=== PATIENT | male | born 1960 | race Two or more races ===

== ENCOUNTER 2025-02-19 17:44 | Inpatient (IN) | payer SELFPAY ==
[~2025-02-19] VITALS: Ht 177.8 cm; Wt 101.0 kg
[2025-02-19] MEDS: AZITHROMYCIN 500MG/ 250ML 250 ML IV ONE (04:31)
[2025-02-19] MEDS: ALBUTEROL SULF 2.5 MG/0.5ML(0.5%) NEB SOLN HHN ONE (18:18)
[2025-02-19] MEDS: IPRATROPIUM BROM 0.5 MG/2.5ML INH SOL HHN ONE (18:18)
--- NOTE | 2025-02-19 18:20 | ED.PDOC ---
SOB-HPI HPI Comments 64y M who presents to the ED for chief complaint of shortness of breath. Pt states he has been having shortness of breath, cough, congestion, and head and sinus pressure intermittently for the past 9 months. Pt states he has noticed exacerbation of his symptoms and was seen by PCP. Pt states he had work up and states it was negative 1x week prior. Pt states he went to PCP today due to exacerbation of his symptoms and was noted to be short of breath with 02 sat of 92 % on room air and was referred to the ED for further evaluation. Pt in the ED, has noted 02 sat of 94% on room air and was placed on supplemental 02. Pt otherwise denies chest pain or any associated symptoms. 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 Pt otherwise denies any other symptoms a this time. Chief Complaint: Shortness of Breath Time Seen by MD: 18:05 Reviewed notes: Nurses Notes, Medications, Allergies Information Source: Patient Mode of Arrival: Ambulatory Brought in by: self Severity: Moderate Timing: Hours Duration: Since onset Context: At Rest PE Risk Factors: None History of: None Prehospital treatment: Oxygen Modifying Factors: Nothing Associated Signs and Symptoms: Wheeze, Cough If cough with SOB: Non-Productive Past Medical History PAST MEDICAL HISTORY: Denies Surgical History: Denies all surgeries Social History Smoker: Non-Smoker Alcohol: Occasionally Drugs: Denies Drug Use Lives In: Home Constitutional: denies: chills, diaphoresis, fatigue, fever, malaise, sweats, weakness, others EENTM: denies: blurred vision, double vision, ear bleeding, ear discharge, ear drainage, ear pain, ear ringing, eye pain, eye redness, hearing loss, mouth pain, mouth swelling, nasal discharge, nose bleeding, nose congestion, nose pain, photophobia, tearing, throat pain, throat swelling, voice changes, others Respiratory: reports: cough, shortness of breath; denies: hemoptysis, orthopnea, SOB at rest, SOB with excertion, stridor, wheezing, others Cardiovascular: denies: chest pain, dizzy spells, diaphoresis, Dyspnea on exertion, edema, irregular heart beat, left arm pain, lightheadedness, palpitations, PND, syncope, others Gastrointestinal: denies: abdomen distended, abdominal pain, blood streaked bowels, constipated, diarrhea, dysphagia, difficulty swallowing, hematemesis, melena, nausea, poor appetite, poor fluid intake, rectal bleeding, rectal pain, vomiting, others Genitourinary: denies: burning, dysuria, flank pain, frequency, hematuria, incontinence, penile discharge, penile sore, pain, testicle pain, testicle swelling, urgency, others Neurological: denies: dizziness, fainting, headache, left sided numbness, left sided weakness, numbness, paresthesia, pre-existing deficit, right sided numbness, right sided weakness, seizure, speech problems, tingling, tremors, weakness, others Musculoskeletal: denies: back pain, gout, joint pain, joint swelling, muscle pain, muscle stiffness, neck pain, others Integumetry: denies: bruises, change in color, change in hair/nails, dryness, laceration, lesions, lumps, rash, wounds, others Allergic/Immunocompromised: denies: Difficulty Healing, Frequent Infections, Hives, Itching, others Hematologic/Lymphatic: denies: anemia, blood clots, easy bleeding, easy bruising, swollen glands, others Endocrine: denies: excessive hunger, excessive sweating, excessive thirst, excessive urination, flushing, intolerance to cold, intolerance to heat, unexplained weight gain, unexplained weight loss, others Psychiatric: denies: anxiety, bipolar disorder, depression, hopeless, panic disorder, schizophrenia, sleepless, suicidal, others All Other Systems: Reviewed and Negative Physical Exam General Appearance: Moderate Distress HEENT: Normal ENT Inspection, Pharynx Normal, TMs Normal Neck: Full Range of Motion, Non-Tender, Normal, Normal Inspection Respiratory: Chest Non-Tender, Decreased Breath Sounds, No Accessory Muscle Use, Respiratory Distress, Wheezing Cardiovascular: No Edema, No JVD, No Murmur, No Gallop, Normal Peripheral Pulses, Regular Rate/Rhythm Breast Exam: Deferred Gastrointestinal: No Organomegaly, Non Tender, No Pulsatile Mass, Normal Bowel Sounds, Soft Genitalia: Deferred Pelvic: Deferred Rectal: Deferred Extremities: No calf tenderness, Normal capillary refill, Normal inspection, Normal range of motion, Non-tender, No pedal edema Musculoskeletal : Apperance: Normal Neurologic: Alert, stonehand II-XII nml as Tested, No Motor Deficits, Normal Affect, Normal Mood, No Sensory Deficits Cerebellar Function: Normal Reflexes: Normal Skin: Dry, Normal Color, Warm Lymphatic: No Adenopathy EKG EKG : Pulse Rate (adult): 67 [place]: Normal Cardiac Rhythm: NSR Block: None Hypertrophy: None ST: Normal Comments low voltage Was a procedure done? Was a procedure done?: No Differential Dx Differential Diagnosis: Asthma, Bronchitis, COPD, Pneumonia, Respiratory Distress, Pharyngitis, URI X-Ray, Labs, Meds, VS Vital Signs Date Time Temp Pulse Resp B/P (MAP) Pulse Ox O2 Delivery O2 Flow Rate FiO2 02/19/25 19:00 97.6 102 20 150/82 (104) 96 97.6 02/19/25 19:00 102 20 96 Nasal Cannula* 2 28 02/19/25 18:27 18 98 Nasal Cannula* 2 28 02/19/25 18:20 67 02/19/25 17:54 67 02/19/25 17:45 97.4 77 18 129/87 94 97.4 Lab Test 02/19/25 18:11 Range/Units White Blood Count 7.3 4.4-10.8 10^3/uL Red Blood Count 4.97 4.5-5.90 10^6/uL Hemoglobin 16.8 13.5-17.5 g/dL Hematocrit 49.1 41.0-53.0 % Mean Corpuscular Volume 98.9 80.0-100.0 fL Mean Corpuscular Hemoglobin 33.8 H 28.0-32.0 pg Mean Corpuscular Hemoglobin Concent 34.2 32.0-36.0 g/dL Red Cell Distribution Width 12.1 11.8-14.3 % Platelet Count 352 140-450 10^3/uL Mean Platelet Volume 6.8 L 6.9-10.8 fL Neutrophils (%) (Auto) 48.5 37.0-80.0 % Lymphocytes (%) (Auto) 28.8 10.0-50.0 % Monocytes (%) (Auto) 10.3 0.0-12.0 % Eosinophils (%) (Auto) 12.1 H 0.0-7.0 % Basophils (%) (Auto) 0.3 0.0-2.0 % Neutrophils # (Auto) 3.5 1.6-8.6 10 ^3/uL Lymphocytes # (Auto) 2.1 0.4-5.4 10 ^3/uL Monocytes # (Auto) 0.7 0-1.3 10 ^3/uL Eosinophils # (Auto) 0.9 H 0-0.8 10 ^3/uL Basophils # (Auto) 0 0-0.2 10 ^3/uL Nucleated Red Blood Cells 0.1 % Sodium Level 138 136-145 mmol/L Potassium Level 4.4 3.5-5.1 mmol/L Chloride Level 104 98-107 mmol/L Carbon Dioxide Level 25 20-31 mmol/L Anion Gap 9 5-15 Blood Urea Nitrogen 7 L 9-23 mg/dL Creatinine 0.84 0.700-1.30 mg/dL Glomerular Filtration Rate Calc 99 >90 mL/min BUN/Creatinine Ratio 8.3 L 10.0-20.0 Serum Glucose 93 74-106 mg/dL Calcium Level 10.4 8.7-10.4 mg/dL B-Type Natriuretic Peptide 23.28 0-100 pg/mL Current Medications Medications (Trade) Dose Ordered Sig/Darrell Route Start Time Stop Time Status Last Admin Methylprednisolone Sodium Succinate (Solu Medrol) 125 mg ONCE ONCE IV 02/19/25 18:15 02/19/25 18:16 DC 02/19/25 19:22 Ipratropium [place] (Atrovent Medneb) 1 mg ONCE ONCE [facility] 02/19/25 18:15 02/19/25 18:16 DC 02/19/25 18:18 Albuterol (Ventolin Medneb) 20 mg ONCE ONCE [facility] 02/19/25 18:15 02/19/25 18:16 DC 02/19/25 18:18 EXAM: XY CHEST TWO VIEWS ROUTINE Findings/Impression: Frontal and lateral chest radiographs demonstrate no acute osseous or superficial soft tissue abnormalities. The trachea is midline. The cardiac silhouette and mediastinum are within normal limits. No pneumothorax, pleural effusions, or consolidations. IV Hep-Lock was established The patient was given a continuous breathing treatment of albuterol and Atrovent The patient was given Solu-Medrol 125 mg IV push The BNP is 23.28 The chemistry panel is within normal limits The CBC is within normal limits At this time, the patient is being admitted to the hospitalist the patient remains at approximately 96% on 2 L nasal cannula The patient is being admitted Images Reviewed?: Images reviewed and evaluated by me Time of 1ST Reevaluation: 18:35 Reevaluation 1ST: Unchanged Time of 2ND Reevaluation: 20:16 Reevaluation 2ND: Unchanged Patient Education/Counseling: Diagnosis, Treatment, Prognosis Family Education/Counseling: No Family Present SEPSIS Sepsis Screen Date sepsis recognized/suspect: Feb 19, 2025 Time Sepsis recognized/suspect: 1746 Recent Procedure: No On Antibiotic Therapy: No Respiratory Rate >20: No Heart Rate >90: No Temp<36 C (96.8 F) or >38.3 C: No SBP <90 or MAP <65 mmHG: No New Acute Mental Status Change: No Is the patient on CPAP, BIPAP,: No Physician Orders Electrocardigram (02/19/25 18:00) Med Neb Initial Treatment (02/19/25 18:01) Heplock Iv (02/19/25 18:01) Pulse Oximetry (02/19/25 18:01) Planer Stone (02/19/25 18:01) Blood Pressure (02/19/25 18:01) Chest Two Views Routine (02/19/25 18:01) Vital Signs Date Time Temp Pulse Resp B/P (MAP) Pulse Ox O2 Delivery O2 Flow Rate FiO2 02/19/25 19:00 97.6 102 20 150/82 (104) 96 97.6 02/19/25 19:00 102 20 96 Nasal Cannula* 2 28 02/19/25 18:27 18 98 Nasal Cannula* 2 28 02/19/25 18:20 67 02/19/25 17:54 67 02/19/25 17:45 97.4 77 18 129/87 94 97.4 Laboratory Tests Test 02/19/25 18:11 White Blood Count 7.3 10^3/uL (4.4-10.8) Medications Medications Dose Ordered Sig/Darrell Route Start Time Stop Time Status Last Admin Dose Admin Albuterol 20 mg ONCE ONCE [facility] 02/19/25 18:15 02/19/25 18:16 DC 02/19/25 18:18 Ipratropium [place] 1 mg ONCE ONCE [facility] 02/19/25 18:15 02/19/25 18:16 DC 02/19/25 18:18 Methylprednisolone Sodium Succinate 125 mg ONCE ONCE IV 02/19/25 18:15 02/19/25 18:16 DC 02/19/25 19:22 Departure 1 Departure Time of Disposition: 20:16 Impression: Primary Impression: Acute respiratory failure Qualified Codes: J96.01 - Acute respiratory failure with hypoxia Additional Impression: COPD (chronic obstructive pulmonary disease) Qualified Codes: J44.9 - Chronic obstructive pulmonary disease, unspecified Disposition: 09 ADMITTED INPATIENT Admit to: Tele Condition: Fair Critical Care Note Critical Care Time?: No Stability Stability form required: Yes Unstable for transfer: Telemetry monitoring (Telemetry monitoring required), ED Physician Assesment (Clinical assesment) Heart Score Heart Score: Heart Score Response (Comments) Value History Slightly Suspicious 0 EKG Normal 0 Age 45-64 1 Risk Factors No known risk factors 0 Troponin Normal limit 0 Total 1 I personally scribed for MOSES CHI MD ([email or web address]) on 02/19/25 at 18:20. Electronically submitted by Emilia Norton ([email or web address] I personally scribed for MOSES CHI MD ([email or web address]) on 02/19/25 at 19:28. Electronically submitted by Emilia Norton ([facility] [email or web address]). MOSES CHI MD Feb 19, 2025 18:20
[2025-02-19 18:22] LABS: Hematocrit 49.1 % (41.0-53.0); Hemoglobin 16.8 g/dL (13.5-17.5); Mean Corpuscular Hemoglobin 33.8 pg (28.0-32.0); Mean Corpuscular Volume 98.9 fL (80.0-100.0); Nucleated Red Blood Cells % 0.1 %
[2025-02-19 18:36] LABS: Chloride 104 mmol/L (98-107); Potassium 4.4 mmol/L (3.5-5.1); Sodium 138 mmol/L (136-145)
[2025-02-19 18:37] LABS: Anion Gap 9 (5-15); Calcium 10.4 mg/dL (8.7-10.4); Carbon Dioxide 25 mmol/L (20-31)
[2025-02-19 18:42] LABS: BUN/Creatinine Ratio 8.3 (10.0-20.0); Glucose 93 mg/dL (74-106)
[2025-02-19 18:47] LABS: Blood Urea Nitrogen 7 mg/dL (9-23)
[2025-02-19 19:00] VITALS: PULSE 102; RESP 20; O2SAT 96
--- NOTE | 2025-02-19 19:19 | DVH ---
EXAM: XY CHEST TWO VIEWS ROUTINE TECHNIQUE: Two radiographic views of the chest CLINICAL HISTORY: cough COMPARISON: None Findings/Impression: Frontal and lateral chest radiographs demonstrate no acute osseous or superficial soft tissue abnorma lities. The trachea is midline. The cardiac silhouette and mediastinum are within normal limits. No pneumothorax, pleural effusions, or consolidations.
[2025-02-19] MEDS: methylPREDNISolone SOD SUCC 125 MG/2 ML VL IV ONE (19:22)
--- NOTE | 2025-02-19 22:14 | DVHHPRES ---
History of Present Illness Resident Creating Document: MEG SPARROW RESIDENT History of Present Illness Logan Parikh is a 64 yo male, with no significant past medical history. The patient presented to the ED for chief complaint of of shortness of breath. The patient states that he has been having shortness of breath, cough, malaise, nasal congestion with frontal and maxillary sinus pressure intermittently for the past 9 months, he visited the urgent care and was prescribed with "inhalers" and mucolytics that provided partial and temporary response. Today, the patient noticed exacerbation of his symptoms, his visited the local urgent care were he was found with low O2 saturation: 92% at room air and was advised to visit the ED. In the ED patient was found O2 sat 94% on room air and O2 2L by nasal canula was started. The patient denies fever, chills, nausea, vomit, sick contacts or recent travels. Cardiovascular: Other (None) Pulmonary: Other (sinusitis past 2 years, COPD ? ) GI: Other (None) Psych: Other (None) Past Surgical History: None Family History: Cancer (Lung cancer on father ) ALCOHOL: occassional Drugs: Marijuana (In teen years, quit more than 20 years ago) Lives: with Family Review of Systems Constitutional: Yes: Malaise; No: Fever, Chills, Sweats, Weakness, Other Eyes: No: Pain, Vision change, Conjunctivae inflammation, Eyelid inflammation, Other, Redness ENT: No: Ear pain, Ear discharge, Nose pain, Nose discharge, Nose congestion, Mouth pain, Mouth swelling, Throat pain, Throat swelling, Other Respiratory: Cough, Dry, Shortness of breath, SOB with excertion, Wheezing, Sputum, Wheezing; No: Hemoptysis, Pleuritic Pain, Other Cardiovascular: No: Chest Pain, Palpitations, Orthopnea, Paroxysmal Noc. Dyspnea, Edema, Lt Headedness, Other Gastrointestinal: No: Nausea, Vomiting, Abdominal Pain, Diarrhea, Constipation, Melena, Hematochezia, Other Genitourinary: No Dysuria, No Frequency, No Incontinence, No Hematuria, No Retention, No Other Musculoskeletal: No: other, neck pain, shoulder pain, arm pain, back pain, hand pain, leg pain, foot pain Skin: No: Rash, Lesions, Jaundice, Bruising, Other Neurological: No: Weakness, Numbness, Incoordination, Change in speech, Confusion, Seizures, Other Allergies: Coded Allergies: NO KNOWN ALLERGIES (Unverified , 02/19/25) Medications Current Medications Medications Dose Ordered Sig/Darrell Route Start Time Stop Time Status Last Admin Dose Admin Albuterol 5 mg Q4HP NEB 02/19/25 22:00 UNV Ipratropium [place] 0.5 mg Q4HP NEB 02/19/25 22:00 UNV Exam Vital Signs Vital Signs Date Time Temp Pulse Resp B/P (MAP) Pulse Ox O2 Delivery O2 Flow Rate FiO2 02/19/25 19:00 97.6 102 20 150/82 (104) 96 97.6 02/19/25 19:00 Nasal Cannula* 2 28 General Appearance: Alert, Oriented X3, Cooperative, mild distress HEENT: Atraumatic, PERRLA, Other (Nasal congestion, nasal and troat mucosa with erythema, no exudates, Nose with mucus are thick and green, tendernes over maxillar sinus and temporal sinus. ) Respiratory: Other (Tachypneic, Sat 93% on O2 2L, reduced long expansion, whezzing in median and lower lobes billateraly. ) Cardiovascular: Regular rate, Normal S1, Normal S2, No murmurs Abdominal: Normal bowel sounds, Soft, No tenderness, No hepatospenomegaly, No masses Extremities: No clubbing, No cyanosis, No edema, Normal pulses, No tenderness/swelling Skin: No rashes, No breakdown, No significant lesion Neuro: Normal gait, Normal speech, Strength at 5/5 X4 ext, Normal tone, Sensation intact, Cranial nerves 3-12 NL Psych/Mental Status: Mental status NL, Mood NL Labs/Xrays Labs Test 02/19/25 18:11 Range/Units White Blood Count 7.3 4.4-10.8 10^3/uL Red Blood Count 4.97 4.5-5.90 10^6/uL Hemoglobin 16.8 13.5-17.5 g/dL Hematocrit 49.1 41.0-53.0 % Mean Corpuscular Volume 98.9 80.0-100.0 fL Mean Corpuscular Hemoglobin 33.8 H 28.0-32.0 pg Mean Corpuscular Hemoglobin Concent 34.2 32.0-36.0 g/dL Red Cell Distribution Width 12.1 11.8-14.3 % Platelet Count 352 140-450 10^3/uL Mean Platelet Volume 6.8 L 6.9-10.8 fL Neutrophils (%) (Auto) 48.5 37.0-80.0 % Lymphocytes (%) (Auto) 28.8 10.0-50.0 % Monocytes (%) (Auto) 10.3 0.0-12.0 % Eosinophils (%) (Auto) 12.1 H 0.0-7.0 % Basophils (%) (Auto) 0.3 0.0-2.0 % Neutrophils # (Auto) 3.5 1.6-8.6 10 ^3/uL Lymphocytes # (Auto) 2.1 0.4-5.4 10 ^3/uL Monocytes # (Auto) 0.7 0-1.3 10 ^3/uL Eosinophils # (Auto) 0.9 H 0-0.8 10 ^3/uL Basophils # (Auto) 0 0-0.2 10 ^3/uL Nucleated Red Blood Cells 0.1 % Sodium Level 138 136-145 mmol/L Potassium Level 4.4 3.5-5.1 mmol/L Chloride Level 104 98-107 mmol/L Carbon Dioxide Level 25 20-31 mmol/L Anion Gap 9 5-15 Blood Urea Nitrogen 7 L 9-23 mg/dL Creatinine 0.84 0.700-1.30 mg/dL Glomerular Filtration Rate Calc 99 >90 mL/min BUN/Creatinine Ratio 8.3 L 10.0-20.0 Serum Glucose 93 74-106 mg/dL Calcium Level 10.4 8.7-10.4 mg/dL B-Type Natriuretic Peptide 23.28 0-100 pg/mL SEPSIS Sepsis Screen Date sepsis recognized/suspect: Feb 19, 2025 Time Sepsis recognized/suspect: 1746 Recent Procedure: No On Antibiotic Therapy: Yes Respiratory Rate >20: Yes Heart Rate >90: Yes Temp<36 C (96.8 F) or >38.3 C: No SBP <90 or MAP <65 mmHG: No New Acute Mental Status Change: No Is the patient on CPAP, BIPAP,: No Physician Orders Electrocardigram (02/19/25 18:00) Med Neb Initial Treatment (02/19/25 18:01) Heplock Iv (02/19/25 18:01) Pulse Oximetry (02/19/25 18:01) Histology Assistant (02/19/25 18:01) Blood Pressure (02/19/25 18:01) Chest Two Views Routine (02/19/25 18:01) Admit (02/19/25:) Code Status (02/19/25:) Vital Signs .PER UNIT PROTOCOL (02/19/25:29) Review Orders With Adm.Md (02/19/25:) Bedside Commode (02/19/25:) Regular Diet (02/20/25 Breakfast) Notify Md Of Changes From Base (02/19/25:) Advance Directive (02/19/25:) Blood Culture (02/19/25:) Patient Condition (02/19/25:) Allergies (02/19/25:) Drug Screen (02/19/25:) Oxygen By Nasal Cannula (02/19/25:) Notify Md Of Changes From Base (02/19/25 21:29) Albuterol Medneb (Ventolin Medneb) (02/19/25 22:00) Ipratropium Medneb (Atrovent Medneb) (02/19/25 22:00) Pantoprazole Tablet (Protonix Tablet) (02/19/25 21:30) Vital Signs Date Time Temp Pulse Resp B/P (MAP) Pulse Ox O2 Delivery O2 Flow Rate FiO2 02/19/25 19:00 97.6 102 20 150/82 (104) 96 97.6 02/19/25 19:00 102 20 96 Nasal Cannula* 2 28 02/19/25 18:27 18 98 Nasal Cannula* 2 28 02/19/25 18:20 67 02/19/25 17:54 67 02/19/25 17:45 97.4 77 18 129/87 94 97.4 Laboratory Tests Test 02/19/25 18:11 White Blood Count 7.3 10^3/uL (4.4-10.8) Medications Medications Dose Ordered Sig/Darrell Route Start Time Stop Time Status Last Admin Dose Admin Albuterol 20 mg ONCE ONCE N 02/19/25 18:15 02/19/25 18:16 DC 02/19/25 18:18 20 MG Ipratropium [place] 1 mg ONCE ONCE N 02/19/25 18:15 02/19/25 18:16 DC 02/19/25 18:18 1 MG Methylprednisolone Sodium Succinate 125 mg ONCE ONCE IV 02/19/25 18:15 02/19/25 18:16 DC 02/19/25 19:22 125 MG Assessment/Plan Assessment/Plan #Acute respiratory failure likely due to pneumonia gram +/- #Acute on Chronic Sinusitis O2 2L nasal cannula Azitromicyn IV Ceftriaxone IV Albuterol Neb Ipatropium Neb Mucolytics Sinus X-ray Blood culture Sputum culture #Obesity Style life modifications Regular diet DVT prophylaxis- Patient deambulating PUD prophylaxis Protonic Goals of care discussed with the patient > 35 min. Discussed plan of care with Dr. Gonzalez Code status: Full code PCP: patient can recall the name. Plan discussed with: Patient and , patients agrees with the plan. Plan discussed with: Patient, Spouse My Orders Orders - MEG SPARROW RESIDENT Procedure Category Date Status Time Admit ADMIT 02/19/25 Transmitted 21:29 Code Status CODE 02/19/25 Transmitted 21:29 Vital Signs [facility] 02/19/25 In Process 21:29 Review Orders With [facility] 02/19/25 In Process Adm.Md 21:29 Bedside Commode [facility] 02/19/25 In Process 21:29 Regular Diet DIET 02/20/25 Transmitted Breakfast Notify Md Of Changes [facility] 02/19/25 In Process From Base 21:29 Advance Directive [facility] 02/19/25 In Process 21:29 Blood Culture JOSE 02/19/25 Logged 21:29 Patient Condition ORDERS 02/19/25 Transmitted 21:29 Allergies [facility] 02/19/25 In Process 21:29 Drug Screen LAB 02/19/25 Logged 21:29 Oxygen By Nasal RT 02/19/25 Transmitted Cannula 21:29 Notify Of Changes [facility] 02/19/25 In Process From Base 21:29 Albuterol Medneb PHA 02/19/25 Logged (Ventolin Medneb) 22:00 Ipratropium Medneb PHA 02/19/25 Logged (Atrovent Medneb) 22:00 Pantoprazole Tablet PHA 02/19/25 Logged (Protonix Tablet) 21:30 Common Visit Codes: [id number] INP/OBS CARE (HIGH) Secondary Visit Codes: [id number] CARE PLAN 30 MINUTES MEG SPARROW RESIDENT Feb 19, 2025 22:14
[2025-02-19 22:24] VITALS: PULSE 81; RESP 18; O2SAT 98
[2025-02-19] MEDS: ALBUTEROL SULF 2.5 MG/0.5ML(0.5%) NEB SOLN NEB SCH (22:24)
[2025-02-19] MEDS: ACETYLCYSTEINE 10 %(100MG/ML) SOL 4ML NEB ONE (22:24)
[2025-02-19] MEDS: IPRATROPIUM BROM 0.5 MG/2.5ML INH SOL NEB SCH (22:24)
[2025-02-19] MEDS: IPRATROPIUM BROM 0.5 MG/2.5ML INH SOL ONE (22:26)
[2025-02-19] MEDS: ALBUTEROL SULF 2.5 MG/0.5ML(0.5%) NEB SOLN ONE (22:27)
[2025-02-19 22:32] VITALS: PULSE 79; RESP 18; O2SAT 100
[2025-02-19 22:35] VITALS: BP 129/76; PULSE 75; RESP 16; TEMP 97.5; O2SAT 95
[2025-02-20] VITALS (18 sets, daily range): BP systolic 105–169; BP diastolic 70–88; PULSE 72–125; RESP 11–19; TEMP 97–98.2; O2SAT 94–99
[2025-02-20] MEDS: PANTOPRAZOLE 40 MG TAB PO ONE (00:53)
[2025-02-20] MEDS: cefTRIAXone 1GM/50ML D5W 50 ML IV ONE (00:58)
--- NOTE | 2025-02-20 02:55 | DVH ---
Procedure: XY X PARANASAL SINUSES 3+ VIEW 02/19/2025 11:21 PM TECHNIQUE: XY X PARANASAL SINUSES 3+ VIEW Indication: Acute face pain possible sinusitis Comparison: None FINDINGS: Bones: No acute fracture or dislocation. Joint spaces are maintained. Soft tissues: Unremarkable. No radiopaque foreign body. No significant air-fluid levels. IMPRESSION: 1. No acute osseous abnormality.
[2025-02-20 06:55] LABS: Base Excess 0.5 mmol/L (-2.0-3.0)
[2025-02-20 08:49] LABS: Hematocrit 45.5 % (41.0-53.0); Hemoglobin 15.9 g/dL (13.5-17.5); Mean Corpuscular Hemoglobin 34.1 pg (28.0-32.0); Mean Corpuscular Volume 97.7 fL (80.0-100.0); Nucleated Red Blood Cells % 0.0 %
[2025-02-20 09:04] LABS: Alanine Aminotransferase 32 U/L (7-40); Alkaline Phosphatase 79 U/L (46-116); Anion Gap 10 (5-15); BUN/Creatinine Ratio 11.1 (10.0-20.0); Calcium 10.3 mg/dL (8.7-10.4); Carbon Dioxide 25 mmol/L (20-31); Chloride 104 mmol/L (98-107); Potassium 3.7 mmol/L (3.5-5.1); Sodium 139 mmol/L (136-145); Total Protein 7.4 g/dL (5.7-8.2)
[2025-02-20 09:05] LABS: Bilirubin, Total 0.5 mg/dL (0.2-1.0)
[2025-02-20 09:06] LABS: Albumin 4.8 g/dL (3.2-4.8); Blood Urea Nitrogen 8 mg/dL (9-23); Glucose 198 mg/dL (74-106)
[2025-02-20] MEDS: cefTRIAXone 1GM/50ML D5W 50 ML IV SCH (09:06)
[2025-02-20 09:59] LABS: COVID19 ANTIGEN SOFIA FIA NEGATIVE (NEGATIVE)
[2025-02-20 10:22] LABS: Urine Protein, UAD Negative (Negative)
[2025-02-20 10:35] LABS: Amphetamine Screen, Urine Neg (NEGATIVE); Barbiturate Scree,Urine Neg (NEGATIVE); Benzodiazephine Screen, Urine Neg (NEGATIVE); Cannabinoid Screen, Urine Neg (NEGATIVE); Cocaine Screen, Urine Neg (NEGATIVE); Opiate Scree,Urine Neg (NEGATIVE); Phencyclidine Screen, Urine Neg (NEGATIVE)
--- NOTE | 2025-02-20 14:31 | DVHPNRES ---
Progress Note Date Seen: Feb 20, 2025 Resident Creating Document: KHANH PHELAN Medical Necessity Reason Pt with a Central, PICC or Fol: No Subjective Review of Systems Patient is a 64 years old male with past medical history of presented to the ED for shortness of breath, cough, nasal congestion with frontal and maxillary sinus pressure alomg with difficulty breathing worsening over the past couple of days, per patient he has been intermittently having wheezing for the past 9 months, previously he received antibiotics and breathing txs that transiently helped but he coulnt continue receiving care or medications due to having no insurace. 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 The patient denies fever, chills, nausea, vomit, sick contacts or recent travels. however patient has extensive wheezing in median and lower lobes billateraly. Patient seen and examined at bedside. Patient is alert and oriented to time, place person and responding to all questions. Constitutional: Yes: Malaise; No: Fever, Chills, Sweats, Weakness, Other Eyes: No: Pain, Vision change, Conjunctivae inflammation, Eyelid inflammation, Other, Redness ENT: No: Ear pain, Ear discharge, Nose pain, Nose discharge, Nose congestion, Mouth pain, Mouth swelling, Throat pain, Throat swelling, Other Respiratory: Cough, Dry, Shortness of breath, SOB with excertion, Wheezing, S putum, Wheezing; No: Hemoptysis, Pleuritic Pain, Other Cardiovascular: No: Chest Pain, Palpitations, Orthopnea, Paroxysmal Noc. Dyspnea, Edema, Lt Headedness, Other Gastrointestinal: No: Nausea, Vomiting, Abdominal Pain, Diarrhea, Constipation, Melena, Hematochezia, Other Genitourinary: No Dysuria, No Frequency, No Incontinence, No Hematuria, No Retention, No Other Musculoskeletal: No: other, neck pain, shoulder pain, arm pain, back pain, hand pain, leg pain, foot pain Skin: No: Rash, Lesions, Jaundice, Bruising, Other Neurological: No: Weakness, Numbness, Incoordination, Change in speech, Confusion, Seizures, Other Allergies: Coded Allergies: NO KNOWN ALLERGIES (Unverified , 02/19/25) Objective vital signs Vital Sign Date Time Temp Pulse Resp B/P (MAP) Pulse Ox O2 Delivery O2 Flow Rate FiO2 02/20/25 14:01 78 18 99 02/20/25 13:51 Nasal Cannula 2.0 02/20/25 13:51 28 02/20/25 12:42 98.2 127/76 (93) 98.2 medications Current Medications Medications Dose Ordered Sig/Darrell Route Start Time Stop Time Status Last Admin Dose Admin Albuterol 5 mg Q4HP [facility] 02/19/25 22:00 02/20/25 13:51 5 MG Ipratropium [place] 0.5 mg Q4HP [facility] 02/19/25 22:00 02/20/25 13:51 0.5 MG Ceftriaxone Sodium 50 ml @ 100 mls/hr DAILY@09 IV 02/20/25 09:00 02/20/25 09:06 100 MLS/HR Methylprednisolone Sodium Succinate 40 mg BID IV 02/20/25 22:00 Pantoprazole Sodium 40 mg DAILY IV 02/21/25 10:00 Examination General Appearance: Alert, Oriented X3, Cooperative, mild distress HEENT: Atraumatic, PERRLA, Other (Nasal congestion, nasal and troat mucosa with erythema, no exudates, Nose with mucus are thick and green, tendernes over maxillar sinus and temporal sinus. ) Respiratory: Other (Tachypneic, Sat 93% on O2 2L, reduced long expansion, whezzing in median and lower lobes billateraly. ) Cardiovascular: Regular rate, Normal S1, Normal S2, No murmurs Abdominal: Normal bowel sounds, Soft, No tenderness, No hepatospenomegaly, No masses Extremities: No clubbing, No cyanosis, No edema, Normal pulses, No tenderness/swelling Skin: No rashes, No breakdown, No significant lesion Neuro: Normal gait, Normal speech, Strength at 5/5 X4 ext, Normal tone, Sensation intact, Cranial nerves 3-12 NL Psych/Mental Status: Mental status NL, Mood NL laboratory and microbiology Laboratory Tests 02/20/25 08:28 Test 02/20/25 08:28 Range/Units Serum Glucose 198 #H 74-106 mg/dL Labs and/or images reviewed: Labs reviewed by me, Image(s) reviewed by me Problem List/Assessment/Plan Problem List/Assessment/Plan #Possible COPD with exacervation, spirometry unavailable -Chest X-Ray- Frontal and lateral chest radiographs demonstrate no acute osseous or superficial soft tissue abnormalities. The trachea is midline. The cardiac silhouette and mediastinum are within normal limits. No pneumothorax, pleural effusions, or consolidations. -Albuterol 5 mg -Ipratropium [place] 0.5 mg -Ceftriaxone Sodium 50ml -Solu Medrol 40 mg -Pantoprazole Sodium 40 mg #Possible sinusitis -Sinuses X-Ray- No acute osseous abnormality. - IV ceftriaxone # Obesity, class 1 - counseled Goals of care: Full code, discussed for >16 minutes on 02/20/25 Plan discussed with patient Plan discussed with Dr. Zhou Plan discussed with: Patient, Other My Orders My Orders Orders - KHANH PHELAN RESIDENT Procedure Category Date Status Time Methylprednisolone PHA 02/20/25 In Process Sod Succ (Solu Medrol 22:00 Pantoprazole PHA 02/21/25 In Process (Protonix) 10:00 Date of Service: Feb 20, 2025 Billing Provider: ZAHEER ZHOU MD Common Visit Codes: [id number] INP/OBS CARE(HIGH) Secondary Visit Codes: [id number] CARE PLAN 30 MINUTES KHANH PHELAN RESIDENT Feb 20, 2025 14:31 ESTEBAN JAMES RESIDENT Feb 20, 2025 20:03 ZAHEER ZHOU MD Feb 21, 2025 21:11
[2025-02-20] MEDS: methylPREDNISolone SOD SUCC 40 MG/ML VL IV SCH (21:21)
[2025-02-21] VITALS (10 sets, daily range): BP systolic 109–121; BP diastolic 72–83; PULSE 70–100; RESP 16–18; TEMP 97.9–99.4; O2SAT 94–98
[2025-02-21 07:28] LABS: Hematocrit 44.8 % (41.0-53.0); Hemoglobin 15.7 g/dL (13.5-17.5); Mean Corpuscular Hemoglobin 34.1 pg (28.0-32.0); Mean Corpuscular Volume 97.5 fL (80.0-100.0); Nucleated Red Blood Cells % 0.0 %
[2025-02-21 07:41] LABS: Anion Gap 11 (5-15); Calcium 9.5 mg/dL (8.7-10.4); Carbon Dioxide 25 mmol/L (20-31); Chloride 105 mmol/L (98-107); Potassium 4.1 mmol/L (3.5-5.1); Sodium 141 mmol/L (136-145)
[2025-02-21 07:47] LABS: BUN/Creatinine Ratio 16.7 (10.0-20.0); Blood Urea Nitrogen 13 mg/dL (9-23)
[2025-02-21 07:49] LABS: Glucose 158 mg/dL (74-106)
[2025-02-21] MEDS: PANTOPRAZOLE 40 MG/10 ML VIAL INJ IV SCH (08:56)
[2025-02-21] MEDS ORDERED: UMEC1AER IN (14:16)
[2025-02-21] MEDS ORDERED: AZIT500T66 PO (14:16)
[2025-02-21] MEDS ORDERED: PRED20TA2 PO (14:16)
--- NOTE | 2025-02-21 15:53 | DVHDSRES ---
Discharge Summary Date of Admission Resident Creating Document: ESTEBAN JAMES RESIDENT Feb 19, 2025 at 21:29 Date of Discharge: Feb 21, 2025 Admitting Diagnosis Acute hypoxic respiratory failure Labs/Diagnostic Data: Laboratory Results Test 02/21/25 06:34 02/20/25 09:30 02/20/25 09:10 02/20/25 08:29 White Blood Count 12.0 10^3/uL (4.4-10.8) Red Blood Count 4.59 10^6/uL (4.5-5.90) Hemoglobin 15.7 g/dL (13.5-17.5) Hematocrit 44.8 % (41.0-53.0) Mean Corpuscular Volume 97.5 fL (80.0-100.0) Mean Corpuscular Hemoglobin 34.1 pg (28.0-32.0) Mean Corpuscular Hemoglobin Concent 34.9 g/dL (32.0-36.0) Red Cell Distribution Width 12.2 % (11.8-14.3) Platelet Count 364 10^3/uL (140-450) Mean Platelet Volume 7.0 fL (6.9-10.8) Neutrophils (%) (Auto) 94.0 % (37.0-80.0) Lymphocytes (%) (Auto) 3.4 % (10.0-50.0) Monocytes (%) (Auto) 2.5 % (0.0-12.0) Eosinophils (%) (Auto) 0.0 % (0.0-7.0) Basophils (%) (Auto) 0.1 % (0.0-2.0) Neutrophils # (Auto) 11.3 10 ^3/uL (1.6-8.6) Lymphocytes # (Auto) 0.4 10 ^3/uL (0.4-5.4) Monocytes # (Auto) 0.3 10 ^3/uL (0-1.3) Eosinophils # (Auto) 0 10 ^3/uL (0-0.8) Basophils # (Auto) 0 10 ^3/uL (0-0.2) Nucleated Red Blood Cells 0.0 % Sodium Level 141 mmol/L (136-145) Potassium Level 4.1 mmol/L (3.5-5.1) Chloride Level 105 mmol/L (98-107) Carbon Dioxide Level 25 mmol/L (20-31) Anion Gap 11 (5-15) Blood Urea Nitrogen 13 mg/dL (9-23) Creatinine 0.78 mg/dL (0.700-1.30) Glomerular Filtration Rate Calc 101 mL/min (>90) BUN/Creatinine Ratio 16.7 (10.0-20.0) Serum Glucose 158 mg/dL (74-106) Calcium Level 9.5 mg/dL (8.7-10.4) Urine Color Light-yellow (Yellow) Urine Clarity Clear (Clear) Urine pH 5.5 (5.0-9.0) Urine Specific [place] 1.008 (1.001-1.035) Urine Protein Negative (Negative) Urine Ketones Negative (Negative) Urine Blood Negative /uL (Negative) Urine Nitrite Negative (Negative) Urine Bilirubin Negative (Negative) Urine Urobilinogen Normal mg/dL (Negative) Urine Leukocyte Esterase Negative /uL (Negative) Urine RBC <1 /hpf (0 - 3) Urine Microscopic WBC < 1 /HPF (0-3) Urine Squamous Epithelial Cells None seen /hpf (<5) Urine Bacteria None seen /hpf (None Seen) Urine Glucose Normal mg/dL (Normal) Urine Opiates Screen Neg (NEGATIVE) Urine Fentanyl Screen Neg (NEGATIVE) Urine Barbiturates Screen Neg (NEGATIVE) Urine Phencyclidine Screen Neg (NEGATIVE) Urine Amphetamines Screen Neg (NEGATIVE) Urine Benzodiazepines Screen Neg (NEGATIVE) Urine Cocaine Screen Neg (NEGATIVE) Urine Cannabinoids Screen Neg (NEGATIVE) Influenza Type A Antigen Negative (Negative) Influenza Type B Antigen Negative (Negative) SARS-CoV-2 Antigen (Rapid) Negative (NEGATIVE) Hemoglobin A1c 5.5 % A1C (<5.7) Test 02/20/25 08:28 02/20/25 06:38 02/19/25 18:11 Total Bilirubin 0.5 mg/dL (0.2-1.0) Aspartate Amino Transferase (AST) 20 U/L (13-40) Alanine Aminotransferase (ALT) 32 U/L (7-40) Alkaline Phosphatase 79 U/L (46-116) Total Protein 7.4 g/dL (5.7-8.2) Albumin 4.8 g/dL (3.2-4.8) Blood Gas Specimen Type Arterial Blood Gas Sample Site Left radial Blood Gas Patient Temperature 37.0 Arterial Blood Date Drawn [id number] Arterial Blood pH 7.436 (7.350-7.450) Arterial Blood Partial Pressure CO2 36.9 mmHg (35.0-48.0) Arterial Blood Partial Pressure O2 72.0 mmHg (83.0-108.0) Arterial Blood HCO3 24.3 mmol/L (21.0-28.0) Arterial Blood Oxygen Saturation 94.4 % (94.0-98.0) Arterial Blood Base Excess 0.5 mmol/L (-2.0-3.0) Arterial Blood Oxyhemoglobin 93.3 % (94.0-98.0) Arterial Blood Carboxyhemoglobin 0.5 % (0.5-1.5) Arterial Blood Methemoglobin 0.7 % (0.0-1.5) Miko Test Modified Blood Gas Total Hemoglobin 16.20 g/dL (13.5-17.5) Blood Gas Liter Flow 3.00 Blood Gas Modality Nasal cannula FiO2 % 32.0 B-Type Natriuretic Peptide 23.28 pg/mL (0-100) Other Laboratory Tests 02/21/25 06:34 Brief Hx & Hospital Course: Patient is a 64 years old male with past medical history of of questionable COPD, recurrent sinusitis, who presented to the ED for shortness of breath, cough, nasal congestion with frontal and maxillary sinus pressure alomg with difficulty breathing worsening over the past couple of days, per patient he has been intermittently having wheezing for the past 9 months, previously he received antibiotics and breathing txs that transiently helped but he coulnt continue receiving care or medications due to having no insurace. 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 The patient denies fever, chills, nausea, vomit, sick contacts or recent travels. however patient has extensive wheezing in median and lower lobes billateraly. Hospital course: Patient was placed on O2 via NC, started on ipratropium and albuterol med nebs scheduled along with IV steroids, IV ceftriaxone and IV azithromycin. IV Protonix was also added for peptic ulcer disease prophylaxis. Chest x-ray showed no acute osseous or superficial soft tissue abnormalities, no pneumothorax pleural effusions or consolidations. X-ray of the sinuses showed no acute osseous abnormality. On the day of discharge, patient appeared well and had stable vital signs, patient was titrated to room air with an SpO2 of 95%. Bilateral wheezing improved considerably from prior, patient expressed desire to be discharged home. Patient was prescribed azithromycin 500 mg p.o. daily for 3 days, prednisolone 40 mg p.o. daily for 5 days and a Neuro inhaler. Patient was instructed to follow up with his PCP or a dryer and washer mechanic at his earliest convenience to prevent hospitalization and improve quality of life. His hospital course was uncomplicated. General Appearance: Cooperative. Well developed. Well nourished. NAD. Ready appearance Head Exam: Normal inspection Neck Exam: Normal inspection. Non-tender. Normal alignment Pulmonary/Respiratory: Chest non-tender. Scattered bilateral expiratory wheezes, improved from prior Cardiovascular/Chest: Regular rate and rhythm. No murmurs. No JVD. Peripheral Pulses: 2+ Radial (R). 2+ Radial (L). 2+ Pedal (R). 2+ Pedal (L) Abdominal Exam: Normal bowel sounds. Soft. normal abdomen, no visible veins, Nontender. No hepatospenomegaly. No masses Ankle Exam: Negative ankle edema Lower extremities: Negative lower extremity edema Neuro/Mental Status: A&O x4. Coherent. Thoughts/Psych: Normal thought pattern. Appropriate mood and affect. Good judgement and insight Skin Exam: Normal inspection. Normal color. Warm. Dry Condition at Discharge: Good Final Diagnosis/Problems List #Possible COPD with exacerbation, spirometry unavailable # acute respiratory failure due to above on O2 via NC #Possible sinusitis # Obesity, class 1 Discharge Disposition: Home Discharge Instruct/Medications Diet: Consistent carbohydrate Activity: No Restrictions, As Tolerated Follow Up/Referral: Please follow up with PCP in 1-2 weeks Please follow up with dryer and washer mechanic in 1-2 weeks Medications: Azithromycin 500 mg once daily for 3 days Prednisolone 40 mg once daily for 5 days Anoro inhaler as needed Scheduled Azithromycin (Azithromycin), 500 MG PO DAILY Prednisone (Prednisone), 40 MG PO DAILY Scheduled PRN Umeclidinium-Vilanterol (Anoro Ellipta 62.5-25 Mcg/INH), 1 AER IN DAILY PRN Discharge Statement: "Patient was advised to return to the ER or call 911 if any headaches, dizziness, shortness of breath, chest pain, abdominal pain, bleeding, fevers, or worsening of medical condition. Patient was counseled about treatment plan, medications, possible side effects, patientverbalized understanding. All questions were answered to the best of my ability. This discharge took greater then 30 minutes in planning, reviewing documentation, counseling the patient, and discussing with other team members." ASSESSMENT ASSESSMENT Assessment #Possible COPD with exacervation, spirometry unavailable #Possible sinusitis # Obesity, class 1 Date of Service: Feb 21, 2025 Billing Provider: ZAHEER SCHRADER MD Common Visit Codes: 34800-EWR/OBS DISCH DAY >30min ESTEBAN JAMES RESIDENT Feb 21, 2025 15:53 ZAHEER SCHRADER MD Feb 21, 2025 21:11
--- NOTE | 2025-02-25 10:46 | ECG ---
[facility] Test Date: 2025-02-19 Test Time: 17:54:09 Pat Name: ABHINAV WATSON Department: ER Room: 0285 Gender: M [employer] Away Worker: GRISELDA : 1960 Requested By: MOSES [facility]I Order Number: [id number] Reading MD: Measurements Intervals [place] Rate: 67 P: 42 IA: 174 QRS: 49 QRSD: 104 T: 59 QT: 405 QTc: 428 Interpretive Statements Sinus rhythm Low voltage, precordial leads Please click the below link to view image of tracing.
== END 2025-02-21 17:00 | disposition home or self-care (01) | DRG 189 ==
LOC: ER 17:44 → OVERFLOW 21:29 → WEST WING 02-20 23:17
PROVIDERS: ADMIT Student in an Organized Health Care Education/Training Program; ATTEND Student in an Organized Health Care Education/Training Program
DX: J96.00 Acute respiratory failure, unspecified whether with hypoxia or hypercapnia (principal); J44.1 Chronic obstructive pulmonary disease with (acute) exacerbation; J32.9 Chronic sinusitis, unspecified; Z20.822 Contact with and (suspected) exposure to COVID-19; E66.811 Obesity, class 1; Z68.32 Body mass index [BMI] 32.0-32.9, adult; Z80.1 Family history of malignant neoplasm of trachea, bronchus and lung
CPT/HCPCS: 36415; 70220; 71046; 80048; 80053; 80307; 81001; 83036; 83880; 85025; 87040; 87426; 87804; 93005; 94640; 96374; G0378; J2470